=== PATIENT | male | born 1950 | race Caucasian/White ===

== ENCOUNTER → 2020-02-28 | Outpatient (CLI) | payer OTHER ==
[~2020-02-28] MED LIST: COVID-19 VACC, MRNA(MODERNA)/PF 100 MCG/0.5 ML VIAL IM ONE; FLOVENT HFA12 GM INH; SPIRIVA18 MCG INH; SYMBICORT 80-10.2 GM INH; TRAZODONE HCL50 MG PO; ZOLOFT50 MG PO
== END | disposition home or self-care (01) ==
LOC: VACCPMC 07:00
DX: Z23 Encounter for immunization (principal); Z20.822 Contact with and (suspected) exposure to COVID-19

== ENCOUNTER → 2020-03-27 | Outpatient (CLI) | payer OTHER | END | DRG 951 | LOC: VACCPMC 07:21 | DX: Z23 Encounter for immunization (principal); Z20.822 Contact with and (suspected) exposure to COVID-19 | CPT/HCPCS: 0012A; 91301 ==